=== PATIENT | female | born 1985 | race Caucasian/White ===

== ENCOUNTER 2016-05-18 09:41 | Emergency (ER) | payer OTHER ==
[2016-05-18 11:39] VITALS: BP 116/73
[2016-05-18] MEDS ORDERED: Tetan/Diph/Pertus SYR(Tdap)* 0.5 ML SYR(BOOSTRIX) use SYR IM ONE (12:13)
--- NOTE | 2016-05-18 12:13 | UC ---
Upper Extremity HPI - HPI Summary HPI Summary: Patient fell a few days ago scraping her arm on a metal shelf. the bruising is improving but she has a large "bumP above and below the cut. no erythema, elbow flexion is painful, pt states she came down hard and fast, does not know if she may have gotten something in it. unknown last tetanus. - History of Current Complaint Chief Complaint: UCUpperExtremity Stated Complaint: RIGHT ARM INJURY (wc) Time Seen by Provider: 05/18/16 11:54 Hx Obtained From: Patient Hx Last Menstrual Period: HAS THE MIRENA, DOES NOT HAVE REG PERIODS ?: No Onset/Duration: Sudden Onset, Lasting Days Severity Initially: Severe Severity Currently: Moderate Pain Intensity: 6 Pain Scale Used: 0-10 Numeric Location Of Pain: Is Discrete @ - right AC fossa Character: Dull, Throbbing Aggravating Factor(s): Flexion Alleviating Factor(s): Nothing Associated Signs And Symptoms: Positive: Negative - Risk Factors Non-Orthopedic Risk Factor: Negative DVT Risk Factors: Negative - Allergies/Home Medications Allergies/Adverse Reactions: Allergies Allergy/AdvReac Type Severity Reaction Status Date / Time No Known Allergies Allergy Verified 05/18/16 11:30 Home Medications: Home Medications Amoxicillin (*) 875 mg PO BID 05/18/16 [History Confirmed 05/18/16] PMH/Surg Hx/FS Hx/Imm Hx Previously Healthy: Yes - Surgical History Surgical History: None - Family History Known Family History: Negative: Cardiac Disease, Hypertension - Social History Alcohol Use: Occasionally Substance Use Type: None Smoking Status (MU): Light Every Day Tobacco Smoker Type: Cigarettes Amount Used/How Often: 4 CIGS PER DAY - Immunization History Most Recent Tetanus Shot: UNKNOWN Review of Systems Constitutional: Fever Skin: Other - healing cut, hard swelling around the bump Eyes: Negative ENT: Negative Respiratory: Negative Cardiovascular: Negative Gastrointestinal: Negative Genitourinary: Negative Motor: Negative Neurovascular: Negative Musculoskeletal: Negative Neurological: Negative Psychological: Negative All Other Systems Reviewed And Are Negative: Yes Physical Exam Triage Information Reviewed: Yes Appearance: Well-Appearing, Well-Nourished, Pain Distress Vital Signs: Initial Vital Signs Temp 98.6 F 05/18/16 11:32 Pulse 75 05/18/16 11:32 Resp 16 05/18/16 11:32 BP 116/73 05/18/16 11:32 Pulse Ox 99 05/18/16 11:32 Vital Signs Reviewed: Yes Eye Exam: Normal Eyes: Positive: Conjunctiva Clear ENT Exam: Normal ENT: Positive: Normal ENT inspection, Hearing grossly normal, Pharynx normal, TMs normal Dental Exam: Normal Neck exam: Normal Neck: Positive: Supple, Nontender, No Lymphadenopathy Respiratory Exam: Normal Respiratory: Positive: Chest non-tender, Lungs clear, Normal breath sounds Cardiovascular Exam: Normal Cardiovascular: Positive: RRR, No Murmur, Pulses Normal Abdominal Exam: Normal Abdomen Description: Positive: Nontender, No Organomegaly, Soft Bowel Sounds: Positive: Present Musculoskeletal Exam: Normal Musculoskeletal: Positive: Strength Intact, ROM Intact, No Edema Neurological Exam: Normal Neurological: Positive: Alert, Muscle Tone Normal Psychological Exam: Normal Psychological: Positive: Normal Response To Family, Age Appropriate Behavior Skin: Positive: Other - smal 2 cm cut on medial elbow, hard linear lump resembling a phelbitis noted, non red, it is tender, there is a softer lump above the cut and patient feels like there may be something in it becasue it feels sharp Upper Extremity Course/Dx - Course Course Of Treatment: hx obtained, exam performed, meds reviewed, tetanus given, xray ordered, no FB seen. educated on treatment of phlebitis - Differential Dx/Diagnosis Differential Diagnosis/HQI/PQRI: Bursitis, Contusion, Strain, Sprain, Other - phlembitis foriegn body Provider Diagnoses: phlebitis of right arm Discharge - Discharge Plan Condition: Stable Disposition: HOME Patient Education Materials: Superficial Thrombophlebitis (ED) Referrals: Kimo Zayas DO [Primary Care Provider] - Additional Instructions: 1. Warm compressed multiple times a day. 2. Protect area a work, 3. follow up if pain, redness, swelling increase.
--- NOTE | 2016-05-18 13:06 | RAD ---
INDICATION: Concern for subcutaneous foreign body after "scraping arm on metal shelf" May 07, 2016 COMPARISON: None. TECHNIQUE: 2 views right elbow. REPORT: Overlying the medial aspect of the right upper arm at the level of the humeral epicondyles there is an external marker. Corresponding to the level of this marker, and presumably the area of concern, there is a lucent area of the subcutaneous tissue measuring 8 x 22 mm. The visualized bones of the right elbow are well corticated and properly aligned. There is no radiographically apparent fracture or dislocation. There is no radiographic evidence of pathologic joint effusion. No subcutaneous foreign body is identified. IMPRESSION: Subcutaneous lucency corresponding to the external marker could represent a subcutaneous cyst or hematoma. If clinically warranted this can be further characterized with ultrasound.
== END 2016-05-18 13:24 | disposition home or self-care (01) ==
LOC: UCCORT 09:41
DX: I80.9 Phlebitis and thrombophlebitis of unspecified site (principal); F17.210 Nicotine dependence, cigarettes, uncomplicated
CPT/HCPCS: 90471; 90715; 99201; G0463